=== PATIENT | female | born 2000 | race Hispanic/Latino ===

== ENCOUNTER 2019-04-16 13:45 | Emergency (ER) | payer OTHER ==
--- NOTE | 2019-04-16 13:56 | Emergency Department Report ---
Blank Doc - Documentation Documentation: 19-year-old female that presents with CP/SOB. This initial assessment/diagnostic orders/clinical plan/treatment(s) is/are subject to change based on patient's health status, clinical progression and re- assessment by fellow clinical providers in the ED. Further treatment and workup at subsequent clinical providers discretion. Patient/guardians urged not to elope from the ED as their condition may be serious if not clinically assessed and managed. Initial orders include: 1- Patient sent to [facility] for further evaluation and treatment 2- EKG 3- CXR
[2019-04-16 13:57] VITALS: BP 134/65
--- NOTE | 2019-04-16 14:27 | XRay Report ---
CHEST PA AND LATERAL VIEWS INDICATION: cp. COMPARISON: None FINDINGS: Support devices: None Heart: Normal Lungs/Pleura: No acute pulmonary or pleural findings. IMPRESSION: 1. No significant abnormality. Signer Name: Erick Jensen MD Signed: 04/16/2019 2:23 PM Workstation Name: [id number]
[2019-04-16] MEDS ORDERED: IBUPROFEN 800 MG TAB PO ONE (16:24)
--- NOTE | 2019-04-16 17:33 | Emergency Department Report ---
ED Chest Pain HPI - General Chief Complaint: Chest Pain Stated Complaint: CHEST PAIN/SOB Time Seen by Provider: 04/16/19 13:54 Source: patient Mode of arrival: Ambulatory Limitations: No Limitations - History of Present Illness Initial Comments: Patient is a 19-year-old female who is presenting with pleuritic chest pain for the last 2-3 days. Patient states his right-sided worse with insulation. She denies cough cold congestion fevers chills nausea vomiting diarrhea. She does state that she has a child who has bronchiolitis. Patient states that she was seen at another hospital and nothing was found at that time. Severity scale (0 -10): 0 - Related Data Previous Rx's Medication Instructions Recorded Last Taken Type predniSONE [Deltasone] 20 mg PO QDAY #5 tab 04/16/19 Unknown Rx traMADol [Ultram] 50 mg PO Q6HR PRN #12 tablet 04/16/19 Unknown Rx Allergies Allergy/AdvReac Type Severity Reaction Status Date / Time No Known Allergies Allergy Unverified 04/16/19 13:55 Heart Score - HEART Score History: Slightly suspicious EKG: Normal Age: < 45 Risk factors: No known risk factors Troponin: < normal limit (n/A) HEART Score: 0 ED Review of Systems ROS: Stated complaint: CHEST PAIN/SOB Other details as noted in HPI Comment: All other systems reviewed and negative ED Past Medical Hx - Past Medical History Previous Medical History?: No - Surgical History Past Surgical History?: No - Social History Smoking Status: Former Smoker Substance Use Type: Alcohol - Medications Home Medications: Home Medications Medication Instructions Recorded Confirmed Last Taken Type predniSONE [Deltasone] 20 mg PO QDAY #5 tab 04/16/19 Unknown Rx traMADol [Ultram] 50 mg PO Q6HR PRN #12 tablet 04/16/19 Unknown Rx ED Physical Exam - General Limitations: No Limitations General appearance: alert, in no apparent distress - Head Head exam: Present: atraumatic, normocephalic - Eye Eye exam: Present: normal appearance - ENT ENT exam: Present: mucous membranes moist - Neck Neck exam: Present: normal inspection - Respiratory Respiratory exam: Present: normal lung sounds bilaterally. Absent: respiratory distress, wheezes, rales, rhonchi, chest wall tenderness - Cardiovascular Cardiovascular Exam: Present: regular rate, normal rhythm. Absent: normal heart sounds, systolic murmur, diastolic murmur, rubs, gallop - GI/Abdominal GI/Abdominal exam: Present: soft, normal bowel sounds - Extremities Exam Extremities exam: Present: normal inspection - Back Exam Back exam: Present: normal inspection - Neurological Exam Neurological exam: Present: alert, oriented X3 - Psychiatric Psychiatric exam: Present: normal affect, normal mood - Skin Skin exam: Present: warm, dry, intact, normal color. Absent: rash ED Course Vital Signs 04/16/19 13:54 Pulse Rate 89 Respiratory 18 Rate Blood Pressure 134/65 O2 Sat by Pulse 98 Oximetry ED Medical Decision Making - Lab Data Lab Results 04/16/19 Range/Units 16:38 D-Dimer < 135.00 (0-234) ng/mlDDU - EKG Data -: EKG Interpreted by Nc EKG shows normal: sinus rhythm, axis, intervals, QRS complexes, ST-T waves Rate: normal - EKG Data Interpretation: normal EKG - Radiology Data CHEST PA AND LATERAL VIEWS INDICATION: cp. COMPARISON: None FINDINGS: Support devices: None Heart: Normal Lungs/Pleura: No acute pulmonary or pleural findings. IMPRESSION: 1. No significant abnormality. Signer Name: Erick Jensen MD Signed: 04/16/2019 2:23 PM Workstation Name: [id number] Transcribed By: TM Dictated By: Erick Jensen MD Electronically Authenticated By: Erick - Medical Decision Making Patient is a 19-year-old female presenting with some chest discomfort which is pleuritic in nature. EKG is inconsistent with current coronary artery disease or pericarditis. X-ray is negative for pneumonia. D-dimer is within normal limits as well making pulmonary embolus unlikely. Patient will be started on a course of steroids for the pleuritic discomfort and be discharged home. Critical care attestation.: If time is entered above; I have spent that time in minutes in the direct care of this critically ill patient, excluding procedure time. ED Disposition Clinical Impression: Pleurisy Disposition: DC-01 TO HOME OR SELFCARE Is pt being admited?: No Does the pt Need Aspirin: No Condition: Stable Instructions: Pleurisy (ED) Time of Disposition: 17:32
[2019-04-16] MEDS ORDERED: predniSONE 20 MG TAB PO NR (18:00)
== END 2019-04-16 17:44 | disposition home or self-care (01) ==
LOC: ED 13:45
DX: R09.1 Pleurisy (principal); Z87.891 Personal history of nicotine dependence
CPT/HCPCS: 36415; 71046; 85379; 93005; 93010